=== PATIENT | male | born 1995 | race Caucasian/White ===

== ENCOUNTER 2017-09-10 18:33 | Emergency (ER) | payer BC, OTHER ==
[~2017-09-10] VITALS: Ht 177.8 cm; Wt 99.8 kg
[2017-09-10] MEDS ORDERED: NS IV 1000 ML 1,000 ML IV ONE (18:49)
--- NOTE | 2017-09-10 18:52 | ED General ---
General Chief Complaint: Cough/Cold/Flu Symptoms Stated Complaint: FLU LIKE SYMPTOMS Nursing Triage Note: ARRIVED VIA AMB TO ROOM 05. COMPLAINS OF FEVER, COUGH, AND NAUSEA STARTING TODAY. TOOK DAYQUIL AT 1100 TODAY. Nursing Sepsis Screen: Possible Sepsis Risk Source of Information: Patient Exam Limitations: No Limitations History of Present Illness Date Seen by Provider: Sep 10, 2017 Time Seen by Provider: 18:47 Initial Comments This 21-year-old gentleman presents to the emergency room with sudden onset of flulike symptoms including nausea, fever, myalgia, headache, mild cough, and discomfort with cough. Symptoms just started today. He is notably tachycardic. He reports drinking lots of water but now is extremely nauseated. He denies any vomiting or diarrhea. It has been hours since he last urinated and his urine was very dark at that time. He took some DayQuil several hours ago but has not taken any other medications today. He denies any known health problems. He is a [employer] student and notes that there have been many cases of influenza on campus. Allergies and Home Medications Allergies Coded Allergies: No Known Drug Allergies (Unverified , 09/10/17) Home Medications Ondansetron 4 Mg Tab.rapdis, 4 MG SL Q4H, #10 Prescribed by: MADELEINE MELISSA on 09/10/172001 Oseltamivir Phosphate 75 Mg Cap, 75 MG PO BID, #10 Prescribed by: MADELEINE MELISSA on 09/10/172001 Constitutional: see HPI EENTM: see HPI Respiratory: see HPI Cardiovascular: see HPI, other (tachycardia) Gastrointestinal: see HPI Genitourinary: see HPI Musculoskeletal: see HPI Skin: no symptoms reported Psychiatric/Neurological: See HPI Hematologic/Lymphatic: No Symptoms Reported Immunological/Allergic: no symptoms reported Past Gxynstr-Uuyfim-Oxbrhg Hx Patient Social History Alcohol Use: Denies Use Recreational Drug Use: No Smoking Status: Never a Smoker Recent Foreign Travel: No Contact w/Someone Who Travel: No Recent Infectious Disease Expo: No Recent Hopitalizations: No Surgeries History of Surgeries: No Respiratory History of Respiratory Disorde: No Cardiovascular History of Cardiac Disorders: No Neurological History of Neurological Disord: No Genitourinary History of Genitourinary Disor: No Gastrointestinal History of Gastrointestinal Di: No Musculoskeletal History of Musculoskeletal Dis: No Endocrine History of Endocrine Disorders: No HEENT History of HEENT Disorders: No Cancer History of Cancer: No Psychosocial History of Psychiatric Problem: No Integumentary History of Skin or Integumenta: No Family Medical History Significant Family History: Diabetes Physical Exam Vital Signs Vital Signs - First Documented 09/10/17 18:37 Temp 100.1 Pulse 149 Resp 22 B/P (MAP) 143/101 (115) Pulse Ox 98 O2 Delivery Room Air Capillary Refill : Less Than 3 Seconds General Appearance: No Apparent Distress, WD/WN HEENT: PERRL/EOMI, TMs Normal, Normal ENT Inspection, Pharynx Normal Neck: Normal Inspection, Non Tender Respiratory: Lungs Clear, Normal Breath Sounds, No Accessory Muscle Use, No Respiratory Distress Cardiovascular: No Edema, No Gallop, No Murmur, Tachycardia Gastrointestinal: Normal Bowel Sounds, Non Tender, Soft Extremity: Normal Inspection, No Pedal Edema Neurologic/Psychiatric: Alert, Oriented x3, No Motor/Sensory Deficits, Normal Mood/Affect, assisted living director II-XII Norm as Tested Skin: Normal Color, Warm/Dry Progress/Results/Core Measures Suspected Sepsis Recent Fever Within 48 Hours: Yes Infection Criteria Present: Suspected New Infection New/Unexplained Altered Menta: No Sepsis Screen: Possible Sepsis Risk Sepsis Diagnosis: SIRS Temperature:100.1 Pulse: 149 Respiratory Rate: 22 Blood Pressure 143 /101 Mean: 115 Laboratory Tests 09/10/17 19:20: Creatinine 1.20 Results/Orders Lab Results Laboratory Tests Test 09/10/17 19:20 09/10/17 19:24 Range/Units Sodium Level 140 135-145 MMOL/L Potassium Level 3.9 3.6-5.0 MMOL/L Chloride Level 106 98-107 MMOL/L Carbon Dioxide Level 20 L 21-32 MMOL/L Anion Gap 14 5-14 MMOL/L Blood Urea Nitrogen 12 7-18 MG/DL Creatinine 1.20 0.60-1.30 MG/DL Estimat Glomerular Filtration Rate > 60 BUN/Creatinine Ratio 10 Glucose Level 109 H 70-105 MG/DL Calcium Level 9.4 8.5-10.1 MG/DL Monoscreen NEGATIVE NEGATIVE Micro Results Microbiology 09/10/17 Influenza Types A,B Antigen ([facility]) - Final, Complete My Orders Orders - MADELEINE MAR MD Basic Metabolic Panel (09/10/17 18:49) Influenza A And B Antigens (09/10/17 18:49) Saline Lock/Iv-Start (09/10/17 18:49) Ns Iv 1000 Ml (Sodium Chloride 0.9%) (09/10/17 18:49) Ketorolac Injection (Toradol Injection) (09/10/17 19:00) Ondansetron Injection (Zofran Injectio (09/10/17 19:00) Monotest (09/10/17 19:24) Ns Iv 500 Ml (Sodium Chloride 0.9%) (09/10/17 19:57) Ns Iv 500 Ml (Sodium Chloride 0.9%) (09/10/17 19:55) Medications Given in ED Current Medications Medications Dose Ordered Sig/Annamaria Route Start Time Stop Time Status Last Admin Dose Admin Ketorolac Tromethamine 30 mg ONCE ONCE IVP 09/10/17 19:00 09/10/17 19:01 DC 09/10/17 19:14 30 MG Ondansetron HCl 8 mg ONCE ONCE IVP 09/10/17 19:00 09/10/17 19:01 DC 09/10/17 19:14 8 MG Sodium Chloride 500 ml @ 0 mls/hr Q0M ONCE IV 09/10/17 19:57 09/10/17 19:58 DC 09/10/17 19:58 500 MLS/HR Sodium Chloride 1,000 ml @ 0 mls/hr Q0M ONCE IV 09/10/17 18:49 09/10/17 18:51 DC 09/10/17 19:14 1,000 MLS/HR Vital Signs/I&O Vital Sign - Last 12Hours 09/10/17 09/10/17 18:37 20:20 Temp 100.1 98.7 Pulse 149 117 Resp 22 16 B/P (MAP) 143/101 (115) Pulse Ox 98 98 O2 Delivery Room Air Capillary Refill : Less Than 3 Seconds Blood Pressure Mean: 115 Progress Note : Progress Note Patient received Toradol, Zofran, and 1500 mL and normal saline boluses. He was feeling better at the time of dismissal. Heart rate and temperature improved. Although his influenza screen was negative, his symptoms are very suspicious for influenza. He was offered Tamiflu which he did want to start. Zofran was also prescribed. Departure Impression Impression: Primary Impression: Flu-like symptoms Additional Impression: Nausea Disposition: 01 HOME, SELF-CARE Condition: Improved Departure-Patient Inst. Decision time for Depature: 19:58 Referrals: [facility] (PCP) Primary Care Physician MADINA MARIE MD (Family) Primary Care Physician Patient Instructions: Flu Add. Discharge Instructions: Your symptoms are likely due to influenza or a similar virus. Drink plenty of clear liquids. Gradually advance your diet with small quantities of bland food as tolerated. For pain and fever take ibuprofen up to 600 mg every 6 hours as needed. Add Tylenol (acetaminophen) up to 1000 mg every 6 hours as needed. Return to the emergency room if symptoms are worsening rather than improving. Complete the entire course of Tamiflu as prescribed (10 doses). Use Zofran (ondansetron) dissolved under your tongue every 4 hours as needed for nausea and vomiting. Do not return to work or school until you are free of fever (temperature of 100 or greater) for at least 24 hours. All discharge instructions reviewed with patient and/or family. Voiced understanding. Scripts Ondansetron (Zofran Odt) 4 Mg Tab.rapdis 4 MG SL Q4H, #10 TAB Prov: MADELEINE MAR MD 09/10/17 Oseltamivir Phosphate (Tamiflu) 75 Mg Cap 75 MG PO BID, #10 CAP Prov: MADELEINE MAR MD 09/10/17 Work/School Note: School/Childcare Release Date Seen in the Emergency Department: Sep 10, 2017 Return to School: Sep 12, 2017 Restrictions: Return-No Fever (24hrs) MADELEINE MAR MD Sep 10, 2017 18:52
[2017-09-10] MEDS ORDERED: KETOROLAC 30 MG/ML VIAL IVP ONE (19:00)
[2017-09-10] MEDS ORDERED: ONDANSETRON 4 MG/2 ML (SDV) Z0FRAN IVP ONE (19:00)
[2017-09-10 19:42] LABS: BUN/CREATININE RATIO 10; CALCIUM 9.4 MG/DL (8.5-10.1); CARBON DIOXIDE 20 MMOL/L (21-32); CHLORIDE 106 MMOL/L (98-107); GFR ESTIMATED > 60; GLUCOSE 109 MG/DL (70-105); POTASSIUM 3.9 MMOL/L (3.6-5.0); SODIUM 140 MMOL/L (135-145)
[2017-09-10] MEDS ORDERED: NS IV 500 ML 500 ML ONE (19:55)
[2017-09-10] MEDS ORDERED: NS IV 500 ML 500 ML IV ONE (19:57)
[2017-09-10] MEDS ORDERED: OSLT75C PO (20:02)
[2017-09-10] MEDS ORDERED: ONDA4TAB8 SL (20:02)
[2017-09-10 20:20] VITALS: BP 126/75
== END 2017-09-10 20:20 | disposition home or self-care (01) ==
LOC: ER 18:35
DX: J11.1 Influenza due to unidentified influenza virus with other respiratory manifestations (principal); R11.0 Nausea
CPT/HCPCS: 36415; 80048; 86308; 87804; 96361; 96374; 96375